=== PATIENT | male | born 1980 | race African-American/Black ===

== ENCOUNTER 2020-09-04 17:47 | Emergency (ER) | payer MEDICAID ==
[2020-09-04] MEDS ORDERED: Aspirin 81 MG Tab.Chew PO ONE (18:11)
[2020-09-04] MEDS: Nitroglycerin 0.4 MG Tab.SL SL PRN ×3 (18:22→18:33)
--- NOTE | 2020-09-04 18:31 | EDM.PDOC ---
<Sudarshan Soto - Last Filed: 09/08/20 06:38> ED HPI GENERAL MEDICAL PROBLEM - General Chief Complaint: Chest Pain Stated Complaint: [facility] Time Seen by Provider: 09/04/20 17:52 - Related Data Allergies Allergy/AdvReac Type Severity Reaction Status Date / Time No Known Allergies Allergy Verified 09/04/20 17:55 ED ROS GENERAL - Review of Systems Review Of Systems: See Below ED EXAM, GENERAL - Physical Exam Exam: See Below Course - Re-Assessments/Exams Free Text/Narrative Re-Assessment/Exam: 09/04/20 18:46 I assisted Sharri with this case. And discussed situation with Dr. Lubin, scanner operator at [facility] in [place]. I was able to review the EKG with him with a concerning looking anterior septal leads albeit no reciprocal changes. He agreed. Initial recommendation from Dr. Lubin was to try to get pain control and we did this the patient's pain went from an 8 to a 3 this was after giving 3 sublingual nitro. Recheck an EKG and his EKG still showed some J-point elevation in the anterior leads however this was much better than it was before Dr. Lubins recommendation at this point was to try and get the patient absolutely pain-free with a nitro drip. And he specifically says hold off on thrombolytics at this point. However he does stress the importance of getting him to [place] as quickly as possible anticipating going to the [facility]. At this point the patient's troponin came back less than 0.017. The patient is essentially pain-free on nitro drip this is acting more like ACS patient has heparin on board and we are working on transfer to [place] Departure - Departure Disposition: DC/Tfer to Acute Hospital 02 Clinical Impression: Abnormal electrocardiogram [ECG] [EKG], Acute coronary syndrome Chest pain Qualifiers: Chest pain type: unspecified Qualified Code(s): R07.9 - Chest pain, unspecified Referrals: PCP,Unknown [Ordering Only Provider] - Forms: ED Department Discharge <Sharri Funes - Last Filed: 09/08/20 20:27> ED HPI GENERAL MEDICAL PROBLEM - General Source of Information: Reports: Patient, RN Notes Reviewed History Limitations: Reports: No Limitations - History of Present Illness INITIAL COMMENTS - FREE TEXT/NARRATIVE: Patient is a 40-year-old male presenting [place] [facility] [place] [facility] with complaints of chest pain that onset 1515 this afternoon. He describes it as a sharp pain in his chest which worsens with deep breathing. He states after the onset of symptoms, he took a shower and it improved significantly. The pain then did worsen prior to coming to ER. He denies any shortness of breath but it is painful to take a deep breath. He did get nauseous and vomit x1, however he states he thinks this is related to him "breathing too much". Denies any significant cardiac history. 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 [facility]. He received 1 aspirin 81 mg in route to ER. Left Chest Pain Score (Numeric/FACES): 7 Past Medical History Cardiovascular History: Reports: Hypertension - Infectious Disease History Infectious Disease History: Reports: MRSA - Past Surgical History GI Surgical History: Reports: Other (See Below) Other GI Surgeries/Procedures: lower abdominal surgery, cannot remember what Social & Family History - Tobacco Use Tobacco Use Status *Q: Current Every Day Tobacco User Years of Tobacco use: 25 Packs/Tins Daily: 0.5 - Caffeine Use Caffeine Use: Reports: None - Recreational Drug Use Recreational Drug Use: No ED ROS GENERAL - Review of Systems Review Of Systems: See Below Constitutional: Reports: No Symptoms HEENT: Reports: No Symptoms Respiratory: Reports: Other (pain with breathing). Denies: Shortness of Breath Cardiovascular: Reports: Chest Pain. Denies: Dyspnea on Exertion, Lightheadedness, Palpitations, Syncope Endocrine: Reports: No Symptoms GI/Abdominal: Reports: Nausea, Vomiting. Denies: Abdominal Pain : Reports: No Symptoms Musculoskeletal: Reports: No Symptoms Skin: Reports: No Symptoms Neurological: Reports: No Symptoms Psychiatric: Reports: No Symptoms Hematologic/Lymphatic: Reports: No Symptoms Immunologic: Reports: No Symptoms ED EXAM, GENERAL - Physical Exam Exam: See Below Exam Limited By: No Limitations General Appearance: Alert, Mild Distress Respiratory/Chest: No Respiratory Distress, Lungs Clear, Normal Breath Sounds, No Accessory Muscle Use, Other (Tenderness to palpation mid sternum.) Cardiovascular: Normal Peripheral Pulses, Regular Rate, Rhythm, No Edema, No Gallop, No JVD, No Murmur, No Rub GI/Abdominal: Normal Bowel Sounds, Soft, Non-Tender, No Organomegaly, No Distent ion, No Abnormal Bruit, No Mass Neurological: Alert, Oriented, CN II-XII Intact, Normal Cognition, Normal Gait, Normal Reflexes, No Motor/Sensory Deficits Psychiatric: Normal Affect, Normal Mood Skin Exam: Warm, Dry, Intact, Normal Color, No Rash Course - Vital Signs Last Recorded V/S: Last Vital Signs Temp 98.0 F 09/04/20 19:03 Pulse 93 09/04/20 20:50 Resp 20 09/04/20 20:50 BP 137/82 09/04/20 20:50 Pulse Ox 98 09/04/20 20:50 - Orders/Labs/Meds Labs: Laboratory Tests 09/04/20 09/04/20 09/04/20 Range/Units 18:15 18:15 18:15 WBC 10.37 H (4.23-9.07) K/mm3 RBC 5.18 (4.63-6.08) M/mm3 Hgb 14.5 (13.7-17.5) gm/dl Hct 43.3 (40.1-51.0) % MCV 83.6 (79.0-92.2) fl MCH 28.0 (25.7-32.2) pg MCHC 33.5 (32.2-35.5) g/dl RDW Std Deviation 41.2 (35.1-43.9) fL Plt Count 260 (163-337) K/mm3 MPV 9.4 (9.4-12.3) fl Neut % (Auto) 65.1 (34.0-67.9) % Lymph % (Auto) 24.5 (21.8-53.1) % [place] % (Auto) 8.7 (5.3-12.2) % Eos % (Auto) 1.1 (0.8-7.0) Baso % (Auto) 0.3 (0.1-1.2) % Neut # (Auto) 6.76 H (1.78-5.38) K/mm3 Lymph # (Auto) 2.54 (1.32-3.57) K/mm3 [place] # (Auto) 0.90 H (0.30-0.82) K/mm3 Eos # (Auto) 0.11 (0.04-0.54) K/mm3 Baso # (Auto) 0.03 (0.01-0.08) K/mm3 Manual Slide Review Normal smear D-Dimer, Quantitative < 0.19 L (0.19-0.50) mg/L Sodium 143 (136-145) mEq/L Potassium 3.3 L (3.5-5.1) mEq/L Chloride 104 (98-107) mEq/L Carbon Dioxide 29 (21-32) mEq/L Anion Gap 13.3 (5-15) BUN 17 (7-18) mg/dL Creatinine 1.1 (0.7-1.3) mg/dL Est Cr Clr Drug Dosing 98.96 mL/min Estimated GFR (MDRD) > 60 (>60) mL/min BUN/Creatinine Ratio 15.5 (14-18) Glucose 120 H (74-106) mg/dL Calcium 9.3 (8.5-10.1) mg/dL Total Bilirubin 0.3 (0.2-1.0) mg/dL AST 13 L (15-37) U/L ALT 25 (16-63) U/L Alkaline Phosphatase 92 (46-116) U/L Troponin I < 0.017 (0.00-0.056) ng/mL C-Reactive Protein <0.2 (<1.0) mg/dL Total Protein 7.3 (6.4-8.2) g/dl Albumin 3.8 (3.4-5.0) g/dl Globulin 3.5 gm/dL Albumin/Globulin Ratio 1.1 (1-2) SARS-CoV-2 RNA (CLAUDE) (NEGATIVE) 09/04/20 Range/Units 19:07 WBC (4.23-9.07) K/mm3 RBC (4.63-6.08) M/mm3 Hgb (13.7-17.5) gm/dl Hct (40.1-51.0) % MCV (79.0-92.2) fl MCH (25.7-32.2) pg MCHC (32.2-35.5) g/dl RDW Std Deviation (35.1-43.9) fL Plt Count (163-337) K/mm3 MPV (9.4-12.3) fl Neut % (Auto) (34.0-67.9) % Lymph % (Auto) (21.8-53.1) % [place] % (Auto) (5.3-12.2) % Eos % (Auto) (0.8-7.0) Baso % (Auto) (0.1-1.2) % Neut # (Auto) (1.78-5.38) K/mm3 Lymph # (Auto) (1.32-3.57) K/mm3 [place] # (Auto) (0.30-0.82) K/mm3 Eos # (Auto) (0.04-0.54) K/mm3 Baso # (Auto) (0.01-0.08) K/mm3 Manual Slide Review D-Dimer, Quantitative (0.19-0.50) mg/L Sodium (136-145) mEq/L Potassium (3.5-5.1) mEq/L Chloride (98-107) mEq/L Carbon Dioxide (21-32) mEq/L Anion Gap (5-15) BUN (7-18) mg/dL Creatinine (0.7-1.3) mg/dL Est Cr Clr Drug Dosing mL/min Estimated GFR (MDRD) (>60) mL/min BUN/Creatinine Ratio (14-18) Glucose (74-106) mg/dL Calcium (8.5-10.1) mg/dL Total Bilirubin (0.2-1.0) mg/dL AST (15-37) U/L ALT (16-63) U/L Alkaline Phosphatase (46-116) U/L Troponin I (0.00-0.056) ng/mL C-Reactive Protein (<1.0) mg/dL Total Protein (6.4-8.2) g/dl Albumin (3.4-5.0) g/dl Globulin gm/dL Albumin/Globulin Ratio (1-2) SARS-CoV-2 RNA (CLAUDE) Positive H (NEGATIVE) Meds: Medications Discontinued Medications Generic Name Dose Route Start Last Admin Trade Name Freq PRN Reason Stop Dose Admin Aspirin 243 mg 09/04/20 18:11 09/04/20 18:28 Aspirin PO 09/04/20 18:12 243 mg ONETIME ONE Administration Heparin Sodium (Porcine) 4,000 units 09/04/20 18:42 09/04/20 18:53 Heparin Sodium IVPUSH 09/04/20 18:43 4,000 units .BOLUS ONE Administration Nitroglycerin/Dextrose 25 mg in 250 mls @ 3 mls/hr 09/04/20 18:45 09/04/20 18:49 Nitroglycerin 25 Mg/D5w 250 Ml IV 5 mcg/min TITRATE HARPREET 3 mls/hr Administration Protocol 5 MCG/MIN Heparin Sodium/Dextrose 25,000 units in 500 mls @ 20 mls/hr 09/04/20 18:45 09/04/20 18:57 Heparin 25,000 Units In D5w 500 Ml IV 1,000 units/hr TITRATE HARPREET 20 mls/hr Administration Protocol 1,000 UNITS/HR Nitroglycerin 0.4 mg 09/04/20 18:19 09/04/20 18:33 Nitrostat SL 0.4 mg Q5M PRN Administration Chest Pain - Re-Assessments/Exams Free Text/Narrative Re-Assessment/Exam: Patient is a 40-year-old male presenting to the emergency department with complaints of acute onset of midsternal chest pain around 1515 this afternoon. Pain is worse with breathing and palpation. He denies any significant cardiac history. EKG obtained in triage does show diffuse ST elevation in leads V2 through V5. Consulted with Dr. Soto who visited with scanner operator, Dr. Lubin. Dr. Lubin reviewed the EKG and did not recommend that we start thrombolytics. He would like us to give nitro x3 to see if the pain improves. After 3 nitro, patient's pain went from 8 out of 10 to 3 out of 10. EKG was repeated while it does show still some elevation in V2 through V5 it is significantly improved from the previous EKG. Dr. Lubin was again consulted. He recommend that we start nitro drip and heparin. He again did not want thrombolytics given. He would like to try to get the patient pain-free on the nitro and then have him sent to [place] soon as possible. I have ordered nitroglycerin 5 mcg/min as well as heparin drip per STEMI protocol. 09/04/20 19:25 Patient is pain-free on 5 mcg of nitro IV. Hematology was significant for WBC minimally elevated at 10.37, potassium 3.3. D-dimer and troponin were both negative. Patient is likely suffering from acute coronary syndrome. Spoke with the physician in the ER at [facility], Dr. Onofre. He has accepted the patient for transfer. Nursing staff is working on arranging transport. Departure - Departure Time of Disposition: 19:25 Reason for Transfer *Q: Primary PCI Indicated Condition: Good Sepsis Event Note (ED) - Evaluation Sepsis Screening Result: No Definite Risk
[2020-09-04] MEDS ORDERED: Heparin Sodium 5,000 Units/ML Vial IVPUSH ONE (18:42)
[2020-09-04] MEDS ORDERED: Heparin Sodium/D5W 25,000 UNITS/500 ML BAG IV SCH (18:45)
[2020-09-04] MEDS ORDERED: Nitroglycerin/D5W 25 MG/250 ML BOTTLE IV SCH (18:45)
--- NOTE | 2020-09-04 18:48 | CR ---
Chest: 2 views of the chest were obtained. Comparison: No prior chest imaging is available. Heart size and mediastinum are normal. Lungs are clear with no acute parenchymal change. Bony structures appear within normal limits for the patient's age. Impression: 1. Nothing acute is appreciated on 2 view chest x-ray. Diagnostic code #1
== END 2020-09-04 20:55 ==
LOC: JD.ED 17:47
DX: I24.9 Acute ischemic heart disease, unspecified (principal); U07.1 COVID-19; R94.31 Abnormal electrocardiogram [ECG] [EKG]; I10 Essential (primary) hypertension; Z72.0 Tobacco use
CPT/HCPCS: 36415; 71046; 80053; 84484; 85025; 85379; 86140; 87635; 93005; 96365; 96366; 96368; 99285; A9270; J1644; J3490; 99284; U0002